=== PATIENT | female | born 1955 | race American Indian/Alaskan Native ===

== ENCOUNTER 2017-06-18 19:30 | Emergency (ER) | payer BC ==
--- NOTE | 2017-06-18 19:40 | EDM.PDOC ---
ED HPI GENERAL MEDICAL PROBLEM - General Chief Complaint: Respiratory Problem Stated Complaint: TROUBLE BREATHING Time Seen by Provider: 06/18/17 19:36 - History of Present Illness INITIAL COMMENTS - FREE TEXT/NARRATIVE: HISTORY AND PHYSICAL: History of present illness: Patient 62-year-old female who was seen approximately 9 days ago at the clinic diagnosed with bronchitis subsequently received a phone call that her chest x- ray demonstrated some atelectasis on the right achieves a follow-up with her doctor she was unable to secure an appointment and presents tonight for evaluation and states that her breathing has been not significantly improved on arrival her pulse oximetry is 9596% on room air and no fever chills vomiting diarrhea or other complaints Review of systems: As per history of present illness and below otherwise all systems reviewed and negative. Past medical history: As per history of present illness and as reviewed below otherwise noncontributory. Surgical history: As per history of present illness and as reviewed below otherwise noncontributory. Social history: No reported history of drug or alcohol abuse. Family history: As per history of present illness and as reviewed below otherwise noncontributory. Physical exam: HEENT: Atraumatic, normocephalic, pupils reactive, negative for conjunctival pallor or scleral icterus, mucous membranes moist, throat clear, neck supple, nontender, trachea midline. Lungs: Clear to auscultation, breath sounds equal bilaterally, chest nontender. Heart: S1S2, regular, negative for clicks, rubs, or JVD. Abdomen: Soft, nondistended, nontender. Negative for masses or hepatosplenomegaly. Negative for costovertebral tenderness. Pelvis: Stable nontender. Genitourinary: Deferred. Rectal: Deferred. Extremities: Atraumatic, negative for cords or calf pain. Neurovascular unremarkable. Neuro: Awake, alert, oriented. Cranial nerves II through XII unremarkable. Cerebellum unremarkable. Motor and sensory unremarkable throughout. Exam nonfocal. Diagnostics: Chest x-ray Therapeutics: None Impression: #1 dyspnea #2 history of bronchitis #3 history of abnormal chest x-ray Definitive disposition and diagnosis as appropriate pending reevaluation and review of above. - Related Data Allergies Allergy/AdvReac Type Severity Reaction Status Date / Time codeine Allergy Stomach Verified 06/18/17 19:38 Upset pregabalin [From Lyrica] Allergy Swelling Verified 06/18/17 19:38 Sulfa (Sulfonamide Allergy Confusion Verified 06/18/17 19:48 Antibiotics) Home Meds: Home Meds Pantoprazole [Protonix] 40 mg PO DAILY 08/23/13 [History] Albuterol [Proair HFA] 1 puff IH Q4H PRN 06/18/17 [History] Amitriptyline [Elavil] 10 mg PO BEDTIME 06/18/17 [History] Social & Family History - Tobacco Use Years of Tobacco use: 1 Second Hand Smoke Exposure: No - Recreational Drug Use Recreational Drug Use: No ED ROS GENERAL - Review of Systems Review Of Systems: ROS reveals no pertinent complaints other than HPI. ED EXAM, GENERAL - Physical Exam Exam: See Below (See dictation) Course - Vital Signs Last Recorded V/S: Last Vital Signs Temp 36.7 C 06/18/17 19:30 Pulse 100 06/18/17 19:30 Resp 24 H 06/18/17 19:30 BP 139/71 06/18/17 19:30 Pulse Ox 95 06/18/17 19:30 - Orders/Labs/Meds Orders: Active Orders 24 hr Category Date Time Status RT Aerosol Therapy [RC] ASDIRECTED Care 06/18/17 19:42 Active Chest 2V [CR] Stat Exams 06/18/17 19:38 Taken Meds: Medications Discontinued Medications Generic Name Dose Route Start Last Admin Trade Name Freq PRN Reason Stop Dose Admin Albuterol/Ipratropium 3 ml 06/18/17 19:41 06/18/17 19:50 Duoneb 3.0-0.5 Mg/3 Ml NEB 06/18/17 19:42 3 ml ONETIME ONE Administration Departure - Departure Time of Disposition: 20:33 Disposition: Home, Self-Care 01 Condition: Good Clinical Impression: Tracheobronchitis - Discharge Information Referrals: Torie Burnett DO [Primary Care Provider] - Forms: ED Department Discharge Additional Instructions: The following information is given to patients seen in the emergency department who are being discharged to home. This information is to outline your options for follow-up care. We provide all patients seen in our emergency department with a follow-up referral. The need for follow-up, as well as the timing and circumstances, are variable depending upon the specifics of your emergency department visit. If you don't have a primary care physician on staff, we will provide you with a referral. We always advise you to contact your personal physician following an emergency department visit to inform them of the circumstance of the visit and for follow-up with them and/or the need for any referrals to a consulting specialist. The emergency department will also refer you to a specialist when appropriate. This referral assures that you have the opportunity for followup care with a specialist. All of these measure are taken in an effort to provide you with optimal care, which includes your followup. Under all circumstances we always encourage you to contact your private physician who remains a resource for coordinating your care. When calling for followup care, please make the office aware that this follow-up is from your recent emergency room visit. If for any reason you are refused follow-up, please contact the [facility] emergency department at and asked to speak to the emergency department charge nurse. Continue albuterol inhaler follow-up private medical doctor 1-2 days return as needed as discussed - My Orders Last 24 Hours: My Active Orders 06/18/17 19:38 Chest 2V [CR] Stat 06/18/17 19:42 RT Aerosol Therapy [RC] ASDIRECTED - Assessment/Plan Last 24 Hours: My Active Orders 06/18/17 19:38 Chest 2V [CR] Stat 06/18/17 19:42 RT Aerosol Therapy [RC] ASDIRECTED
[2017-06-18] MEDS ORDERED: Albuterol/Ipratropium 3.0-0.5 MG/3 ML Neb Soln NEB ONE (19:41)
--- NOTE | 2017-06-19 13:56 | CR ---
EXAM DATE: 06/18/17 PATIENT'S AGE: 62 Patient: BHAVIK PLAZA Facility: [place], [place] Site . Site : 1955 Study: XRay Chest [id number]/25/2018 8:08:08 PM Ordering Physician: Tere Bob Final Report: INDICATION: pain/sob/cough CHEST, PA AND LATERAL Upright PA and lateral radiographs of the chest were performed. Comparison: No previous studies are currently available for comparison. The lungs appear clear and there are no pleural effusions. Heart size and pulmonary vasculature appear normal. Visualized bones show no significant findings. IMPRESSION: No acute intrathoracic abnormality identified. CLAUDIO LUCIO MD [employer] Dictated by: Nate Lucio MD @ 06/18/2017 20:27:36 (Electronic Signature) Report Signed by Proxy. [facility]
== END 2017-06-18 20:45 | disposition home or self-care (01) ==
LOC: MW.ED 19:30
DX: J40 Bronchitis, not specified as acute or chronic (principal); Z79.899 Other long term (current) drug therapy; Z88.2 Allergy status to sulfonamides; Z88.5 Allergy status to narcotic agent; Z88.8 Allergy status to other drugs, medicaments and biological substances; Z72.0 Tobacco use
CPT/HCPCS: 71046; 71046-26; 94640; 99283; 99285-25

== ENCOUNTER 2020-03-24 09:22 | Day surgery (SDC) | payer MEDICARE, OTHER ==
[~2020-03-24 09:22] MED LIST: Lactated Ringers 1,000 ML IV SCH; Sodium Chloride 0.9% 10 ML SDV IV PRN; Sodium Chloride 0.9% 10 ML Syringe FLUSH PRN; Sodium Chloride 0.9% 2.5 ML Syringe FLUSH PRN
--- NOTE | 2020-03-24 09:43 | PCM.PREANE ---
Preanesthetic Assessment - Anesthesia/Transfusion/Family Hx Anesthesia History: Prior Anesthesia Without Reaction Family History of Anesthesia Reaction: No Transfusion History: No Prior Transfusion(s) - Review of Systems General: No Symptoms Pulmonary: No Symptoms Cardiovascular: No Symptoms Gastrointestinal: Diarrhea, Difficulty Swallowing Neurological: No Symptoms Other: Reports: None - Physical Assessment NPO Status Date: 03/23/20 Height: 5 ft 2 in Weight: 93.44 kg ASA Class: 2 Mental Status: Alert & Oriented x3 Airway Class: Mallampati = 2 Dentition: Reports: Normal Dentition ROM/Head Extension: Full Lungs: Clear to Auscultation, Normal Respiratory Effort Cardiovascular: Regular Rate, Regular Rhythm - Allergies Allergies/Adverse Reactions: Allergies Allergy/AdvReac Type Severity Reaction Status Date / Time codeine Allergy Stomach Verified 03/18/20 10:01 Upset pregabalin [From Lyrica] Allergy Swelling Verified 03/18/20 10:01 Sulfa (Sulfonamide Allergy Confusion Verified 03/18/20 10:01 Antibiotics) - Acknowledgements Anesthesia Type Planned: General Anesthesia (tiva) Pt an Appropriate Candidate for the Planned Anesthesia: Yes Alternatives and Risks of Anesthesia Discussed w Pt/Guardian: Yes Pt/Guardian Understands and Agrees with Anesthesia Plan: Yes PreAnesthesia Questionnaire HEENT History: Reports: None Cardiovascular History: Reports: None Respiratory History: Reports: Bronchitis, Recurrent Other Respiratory History: hx tracheobronchitis, smokes 1/2 to 1 PPD x 40 years, Gastrointestinal History: Reports: GERD Genitourinary History: Reports: None RESOURCES REPRESENTATIVE History: Reports: Musculoskeletal History: Reports: None Neurological History: Reports: None Psychiatric History: Reports: None Endocrine/Metabolic History: Reports: Obesity/BMI 30+ Hematologic History: Reports: None Immunologic History: Reports: None Oncologic (Cancer) History: Reports: None Dermatologic History: Reports: None - Past Surgical History Female Surgical History: Reports: TURBT - SUBSTANCE USE Tobacco Use Status *Q: Current Every Day Tobacco User Tobacco Use Within Last Twelve Months: Cigarettes - HOME MEDS Home Medications: Home Meds Amitriptyline [Elavil] 10 mg PO TID 06/18/17 [History] Famotidine [Pepcid] 20 mg PO DAILY 03/18/20 [History] Ibuprofen 2 tab PO ASDIRECTED PRN 03/18/20 [History] - CURRENT (IN HOUSE) MEDS Current Meds: Current Medications Lactated Ringer's (Ringers, Lactated) 1,000 mls @ 125 mls/hr IV ASDIRECTED JOSELINE Last Admin: 03/24/20 09:40 Dose: 125 mls/hr Documented by: Sodium Chloride (Saline Flush) 10 ml FLUSH ASDIRECTED PRN PRN Reason: Keep Vein Open Sodium Chloride (Saline Flush) 2.5 ml FLUSH ASDIRECTED PRN PRN Reason: Keep Vein Open Sodium Chloride (Saline Flush) 10 ml FLUSH ASDIRECTED PRN PRN Reason: Keep Vein Open Sodium Chloride (Saline Flush) 2.5 ml FLUSH ASDIRECTED PRN PRN Reason: Keep Vein Open Sodium Chloride (Normal Saline) 10 ml IV ASDIRECTED PRN PRN Reason: IV Use
[2020-03-24] MEDS ORDERED: Lidocaine 2% 5 ML SDV ONE (09:44)
[2020-03-24] MEDS ORDERED: Propofol 200 MG/20 ML SDV ONE (09:44)
[2020-03-24] MEDS ORDERED: Midazolam 1 MG/ML 2 ML SDV ONE (09:45)
[2020-03-24] MEDS ORDERED: fentaNYL 100 MCG/2 ML SDV ONE (09:45)
[2020-03-24] MEDS ORDERED: Glycopyrrolate 0.2 MG/ML SDV ONE (10:24)
[2020-03-24] MEDS ORDERED: ePHEDrine 50 MG/ML SDV ONE (10:24)
--- NOTE | 2020-03-24 10:29 | PCM48HPAN ---
Post Anesthesia Note - EVALUATION WITHIN 48HRS OF ANESTHETIC Vital Signs in Normal Range: Yes Patient Participated in Evaluation: Yes Respiratory Function Stable: Yes Airway Patent: Yes Cardiovascular Function Stable: Yes Hydration Status Stable: Yes Pain Control Satisfactory: Yes Nausea and Vomiting Control Satisfactory: Yes Mental Status Recovered: Yes Vital Signs: Last Vital Signs Temp Pulse 103 H 03/24/20 09:24 Resp 16 03/24/20 09:24 BP 134/63 03/24/20 09:24 Pulse Ox 97 03/24/20 09:24
--- NOTE | 2020-03-24 10:30 | PCM.POSTAN ---
POST ANESTHESIA ASSESSMENT - MENTAL STATUS Mental Status: Alert, Oriented - VITAL SIGNS Vital Signs: Last Vital Signs Temp Pulse 103 H 03/24/20 09:24 Resp 16 03/24/20 09:24 BP 134/63 03/24/20 09:24 Pulse Ox 97 03/24/20 09:24 - RESPIRATORY Respiratory Status: Respiratory Rate WNL, Airway Patent, O2 Saturation Stable - CARDIOVASCULAR CV Status: Pulse Rate WNL, Blood Pressure Stable - GASTROINTESTINAL GI Status: No Symptoms - POST OP HYDRATION Hydration Status: Adequate & Stable
--- NOTE | 2020-03-24 10:42 | PCM.OPNOTE ---
- General Post-Op/Procedure Note Date of Surgery/Procedure: 03/24/20 Operative Procedure(s): Diagnostic EGD and colonoscopy Findings: Gastritis, normal colonoscopy Pre Op Diagnosis: Reflux and change in bowel habits Post-Op Diagnosis: gastritis, normal colonoscopy Anesthesia Technique: KANDACE Primary Surgeon: Sherlyn Jin Condition: Good
--- NOTE | 2020-03-24 16:42 | OR ---
SURGEON: SURAJ HOWE MD DATE OF PROCEDURE: 03/24/2020 PREOPERATIVE DIAGNOSES: 1. Reflux. 2. Change in bowel habits. POSTOPERATIVE DIAGNOSES: 1. Gastritis. 2. Normal colonoscopy. PROCEDURES PERFORMED: Diagnostic esophagogastroduodenoscopy and colonoscopy. ANESTHESIA: MAC. INSTRUMENT USED: Olympus endoscope and colonoscope. EXTENT OF EXAMINATION: To the second portion of duodenum, to the cecum. PREPARATION: Good. LIMITATIONS: None. INDICATIONS FOR EXAMINATION: The patient is a 64-year-old female with a history of reflux. This has been worsening. She has also noticed a change in her bowel habits. The decision was made to proceed with diagnostic esophagogastroduodenoscopy and colonoscopy. The patient and I discussed the procedures, expected perioperative course, and the risks. She verbalized understanding and wishes to proceed. PROCEDURE IN DETAIL: The patient was brought to the endoscopy suite and placed in a left lateral decubitus position. A time-out was completed verifying the patient's name, age, date of , allergies, and procedure to be performed. Monitored anesthesia care was induced. A bite block was placed in the patient's mouth and continuous oxygen was provided via nasal cannula throughout the procedure. After adequate sedation was achieved, a well-lubricated endoscope was placed in the patient's mouth and advanced under direct visualization to the level of the second portion of duodenum. This appeared normal and a photograph was taken. Scope was then fully withdrawn while examining the color, texture, anatomy, and integrity of the mucosa of the upper GI tract. The duodenum appeared normal. The scope was then brought into the stomach and a photograph was taken of the pylorus and GE junction. These both appeared anatomically normal. The gastric mucosa appeared diffusely inflamed consistent with gastritis. Biopsies were taken of the gastric antrum, body, and fundus and sent for histologic review and H pylori testing. There was no evidence of ulceration. The scope was then brought into the distal esophagus and a photograph was taken of the GE junction. The Z-line appeared normal. A biopsy was taken of the distal esophageal mucosa 1 cm up from the Z-line. This was sent to pathology, labeled as esophagus. The remainder of the esophageal mucosa was free of pathology. The scope was removed and this portion of the procedure terminated. A digital rectal exam was performed. This exam was within normal limits. A well-lubricated colonoscope was inserted in the rectum and advanced under direct visualization to the level of the cecum. Cecum was identified by both visual and anatomic landmarks. A photograph was taken of the cecal cap, however, I was unable to retroflex the scope within the cecum due to looping of the scope more proximally. The scope was then fully withdrawn while examining the color, texture, anatomy, and integrity of the mucosa from the cecum to the anal canal. The findings were consistent with normal colonic mucosa. Scope was then brought into the rectum and retroflexed to allow visualization of the anal canal opening. This appeared normal and a photograph was taken. The scope was then straightened out and fully withdrawn. Cecum to anus time was 9 minutes. The patient tolerated the procedure well and was transferred to the PACU in stable condition. ENDOSCOPIC DIAGNOSES: 1. Gastritis. 2. Normal colonoscopy. RECOMMENDATIONS: We will start the patient on 40 mg of pantoprazole daily. We will see the patient in clinic in 2 weeks to discuss the pathology results and the next steps in treatment. СЕРГЕЙ MCCAULEY /[id number]
== END 2020-03-24 11:16 | disposition home or self-care (01) ==
LOC: MW.SDS 09:22
PROVIDERS: ATTEND Surgery
DX: R19.4 Change in bowel habit (principal); K21.9 Gastro-esophageal reflux disease without esophagitis; F17.200 Nicotine dependence, unspecified, uncomplicated; D17.1 Benign lipomatous neoplasm of skin and subcutaneous tissue of trunk; D17.20 Benign lipomatous neoplasm of skin and subcutaneous tissue of unspecified limb; J44.9 Chronic obstructive pulmonary disease, unspecified; F17.210 Nicotine dependence, cigarettes, uncomplicated; E66.9 Obesity, unspecified; Z88.5 Allergy status to narcotic agent; Z88.8 Allergy status to other drugs, medicaments and biological substances; Z88.2 Allergy status to sulfonamides; Z79.899 Other long term (current) drug therapy; Z98.890 Other specified postprocedural states; Z90.49 Acquired absence of other specified parts of digestive tract; Z68.37 Body mass index [BMI] 37.0-37.9, adult
CPT/HCPCS: 43239; 45378; 88305; 88312; J2001; J2250; J2704; J3010; J3490; J7120; 00813

== ENCOUNTER 2021-04-04 23:17 | Observation (INO) | payer MEDICARE, OTHER ==
[2021-04-04] MEDS ORDERED: Sodium Chloride 0.9% 2.5 ML Syringe FLUSH PRN (23:45)
[2021-04-04] MEDS ORDERED: Lactated Ringers 1,000 ML IV ONE (23:45)
[2021-04-04] MEDS ORDERED: Sodium Chloride 0.9% 10 ML Syringe FLUSH PRN (23:45)
[2021-04-04] MEDS ORDERED: Labetalol 100 MG/20 ML MDV IVPUSH ONE (23:51)
--- NOTE | 2021-04-04 23:51 | EDM.PDOC ---
ED HPI GENERAL MEDICAL PROBLEM - General Chief Complaint: Headache Stated Complaint: HIGH BP, LIGHTHEADED Time Seen by Provider: 04/04/21 23:21 Source of Information: Reports: Patient History Limitations: Reports: No Limitations - History of Present Illness INITIAL COMMENTS - FREE TEXT/NARRATIVE: 65-year-old female history of HTN, HLD, smoker presents with dizziness, headache, chest pain. She saw her PCP Dr. Mary Peters 3 days ago and was prescribed lisinopril 20mg daily. She has felt dizzy over the past week, associated with blurry vision, shortness of breath, dyspnea on exertion, orthopnea, nausea. She woke up with headache today, localized to the frontal, occipital region, described as constant pressure rated 3/10. Over the past 2 weeks she has also had intermittent left leg numbness and weakness, and left- sided intermittent chest pain that is sharp and moderate. She is currently chest pain-free, and denies left leg weakness or numbness. She denies abdominal pain or back pain. She had a negative stress test 12 years ago. ROS: A 10-point review of systems, other than pertinent positives and negatives as stated per HPI, is otherwise negative Past medical history: No additional pertinent history Past Surgical history: No additional pertinent history Social history: No additional pertinent history Family history: No additional pertinent history PHYSICAL EXAM General: AOx4, GCS = 15, No distress HEENT: dry mucous membrane Neck: supple, no meningismus, no Kernig or Brudzinski Cardiac: S1S2 RRR, chest wall tender to palpation. Respiratory: CTAB, no crackles or rales, no wheezing Abdomen: Soft, nontender, no rebound or guarding, nondistended, no pulsatile mass. Back: nontender Musculoskeletal: NVI distally, no deformity Neuro: No focal deficits, CN 2 - 12 WNL. NIHSS = 0. Headache Pain Score (Numeric/FACES): 5 - Related Data Allergies Allergy/AdvReac Type Severity Reaction Status Date / Time codeine Allergy Stomach Verified 04/04/21 23:29 Upset pregabalin [From Lyrica] Allergy Swelling Verified 04/04/21 23:29 Sulfa (Sulfonamide Allergy Confusion Verified 04/04/21 23:29 Antibiotics) Home Meds: Home Meds Amitriptyline [Elavil] 04/04/21 [History] lisinopriL [Lisinopril] 04/04/21 [History] Past Medical History HEENT History: Reports: None Cardiovascular History: Reports: None Respiratory History: Reports: Bronchitis, Recurrent Other Respiratory History: hx tracheobronchitis, smokes 1/2 to 1 PPD x 40 years, Gastrointestinal History: Reports: GERD Genitourinary History: Reports: None 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: Musculoskeletal History: Reports: None Neurological History: Reports: None Psychiatric History: Reports: None Endocrine/Metabolic History: Reports: Obesity/BMI 30+ Hematologic History: Reports: None Immunologic History: Reports: None Oncologic (Cancer) History: Reports: None Dermatologic History: Reports: None - Past Surgical History Head Surgeries/Procedures: Reports: None HEENT Surgical History: Reports: Tonsillectomy Cardiovascular Surgical History: Reports: None Respiratory Surgical History: Reports: None GI Surgical History: Reports: Cholecystectomy Female Surgical History: Reports: TURBT Endocrine Surgical History: Reports: None Neurological Surgical History: Reports: None Musculoskeletal Surgical History: Reports: Other (See Below) Other Musculoskeletal Surgeries/Procedures:: excision of lipoma from rt rib cage area Oncologic Surgical History: Reports: None Social & Family History - Family History Family Medical History: No Pertinent Family History - Tobacco Use Second Hand Smoke Exposure: No - Caffeine Use Caffeine Use: Reports: None - Recreational Drug Use Recreational Drug Use: No ED ROS GENERAL - Review of Systems Review Of Systems: See Below (see dictation) ED EXAM, GENERAL - Physical Exam Exam: See Below (see dictation) #1 Interpretation EKG Interpretation Comments: Heart rate = 91 bpm, normal sinus rhythm, normal QRS interval, no STEMI. EKG and rhythm strip interpreted by me at 1151p Course - Vital Signs Last Recorded V/S: Last Vital Signs Temp 98.1 F 04/04/21 23:26 Pulse 75 04/05/21 01:53 Resp 16 04/05/21 01:53 BP 167/72 H 04/05/21 01:53 Pulse Ox 97 04/05/21 01:53 - Orders/Labs/Meds Orders: Active Orders 24 hr Category Date Time Status Cardiac Monitoring [RC] . DIRECTED Care 04/04/21 23:45 Active Pulse Oximetry [RC] ASDIRECTED Care 04/04/21 23:45 Active B-TYPE NATRIURETIC PEPTIDE,BNP [CHEM] Stat Lab 04/04/21 23:55 Received Sodium Chloride 0.9% [Saline Flush] Med 04/04/21 23:45 Active 10 ml FLUSH ASDIRECTED PRN Sodium Chloride 0.9% [Saline Flush] Med 04/04/21 23:45 Active 2.5 ml FLUSH ASDIRECTED PRN Saline Lock Insert [OM.PC] Routine Oth 04/04/21 23:45 Ordered Medication Orders Sodium Chloride (Sodium Chloride 0.9% 10 Ml Syringe) 10 ml FLUSH ASDIRECTED PRN PRN Reason: Keep Vein Open Last Admin: 04/04/21 23:52 Dose: 10 ml Documented by: CECILE Sodium Chloride (Sodium Chloride 0.9% 2.5 Ml Syringe) 2.5 ml FLUSH ASDIRECTED PRN PRN Reason: Keep Vein Open Last Admin: 04/04/21 23:52 Dose: 2.5 ml Documented by: CECILE Labs: Laboratory Tests 04/04/21 04/04/21 04/04/21 Range/Units 23:51 23:55 23:55 WBC 9.06 (4.0-11.0) K/uL RBC 4.74 (4.30-5.90) M/uL Hgb 14.2 (12.0-16.0) g/dL Hct 42.7 (36.0-46.0) % MCV 90.1 (80.0-98.0) fL MCH 30.0 (27.0-32.0) pg MCHC 33.3 (31.0-37.0) g/dL RDW Std Deviation 51.1 (28.0-62.0) fl RDW Coeff of Yaritza 16 H (11.0-15.0) % Plt Count 275 (150-400) K/uL MPV 10.00 (7.40-12.00) fL Neut % (Auto) 55.2 (48.0-80.0) % Lymph % (Auto) 35.2 (16.0-40.0) % [place] % (Auto) 5.8 (0.0-15.0) % Eos % (Auto) 3.2 (0.0-7.0) % Baso % (Auto) 0.6 (0.0-1.5) % Neut # (Auto) 5.0 (1.4-5.7) K/uL Lymph # (Auto) 3.2 H (0.6-2.4) K/uL [place] # (Auto) 0.5 (0.0-0.8) K/uL Eos # (Auto) 0.3 (0.0-0.7) K/uL Baso # (Auto) 0.1 (0.0-0.1) K/uL Nucleated RBC % 0.0 /100WBC Nucleated RBCs # 0 K/uL Sodium (136-145) mmol/L Potassium (3.5-5.1) mmol/L Chloride (98-107) mmol/L Carbon Dioxide (21.0-32.0) mmol/L BUN (7.0-18.0) mg/dL Creatinine (0.6-1.0) mg/dL Est Cr Clr Drug Dosing mL/min Estimated GFR (MDRD) ml/min Glucose (74-106) mg/dL POC Glucose 99 (70-99) mg/dL Calcium (8.5-10.1) mg/dL Phosphorus (2.6-4.7) mg/dL Magnesium (1.8-2.4) mg/dL Total Bilirubin (0.2-1.0) mg/dL AST (15-37) IU/L ALT (14-63) IU/L Alkaline Phosphatase (46-116) U/L Troponin I (0.000-0.056) ng/mL Total Protein (6.4-8.2) g/dL Albumin (3.4-5.0) g/dL Globulin (2.6-4.0) g/dL Albumin/Globulin Ratio (0.9-1.6) Lipase (73-393) U/L Urine Color Urine Appearance Urine pH (5.0-8.0) Ur Specific [place] (1.001-1.035) Urine Protein (NEGATIVE) mg/dL Urine Glucose (UA) (NEGATIVE) mg/dL Urine Ketones (NEGATIVE) mg/dL Urine Occult Blood (NEGATIVE) Urine Nitrite (NEGATIVE) Urine Bilirubin (NEGATIVE) Urine Urobilinogen (<2.0) EU/dL Ur Leukocyte Esterase (NEGATIVE) Urine RBC (0-2/HPF) Urine WBC (0-5/HPF) Ur Epithelial Cells (NONE-FEW) Urine Bacteria (NEGATIVE) SARS-CoV-2 RNA (LATISHA) NEGATIVE (NEGATIVE) 04/04/21 04/05/21 Range/Units 23:55 01:30 WBC (4.0-11.0) K/uL RBC (4.30-5.90) M/uL Hgb (12.0-16.0) g/dL Hct (36.0-46.0) % MCV (80.0-98.0) fL MCH (27.0-32.0) pg MCHC (31.0-37.0) g/dL RDW Std Deviation (28.0-62.0) fl RDW Coeff of [place] (11.0-15.0) % Plt Count (150-400) K/uL MPV (7.40-12.00) fL Neut % (Auto) (48.0-80.0) % Lymph % (Auto) (16.0-40.0) % [place] % (Auto) (0.0-15.0) % Eos % (Auto) (0.0-7.0) % Baso % (Auto) (0.0-1.5) % Neut # (Auto) (1.4-5.7) K/uL Lymph # (Auto) (0.6-2.4) K/uL [place] # (Auto) (0.0-0.8) K/uL Eos # (Auto) (0.0-0.7) K/uL Baso # (Auto) (0.0-0.1) K/uL Nucleated RBC % /100WBC Nucleated RBCs # K/uL Sodium 140 (136-145) mmol/L Potassium 3.8 (3.5-5.1) mmol/L Chloride 104 (98-107) mmol/L Carbon Dioxide 26.4 (21.0-32.0) mmol/L BUN 11 (7.0-18.0) mg/dL Creatinine 0.8 (0.6-1.0) mg/dL Est Cr Clr Drug Dosing 54.71 mL/min Estimated GFR (MDRD) > 60.0 ml/min Glucose 105 (74-106) mg/dL POC Glucose (70-99) mg/dL Calcium 8.8 (8.5-10.1) mg/dL Phosphorus 3.3 (2.6-4.7) mg/dL Magnesium 2.4 (1.8-2.4) mg/dL Total Bilirubin 0.2 (0.2-1.0) mg/dL AST 17 (15-37) IU/L ALT 27 (14-63) IU/L Alkaline Phosphatase 104 (46-116) U/L Troponin I < 0.050 (0.000-0.056) ng/mL Total Protein 8.1 (6.4-8.2) g/dL Albumin 3.6 (3.4-5.0) g/dL Globulin 4.5 H (2.6-4.0) g/dL Albumin/Globulin Ratio 0.8 L (0.9-1.6) Lipase 63 L (73-393) U/L Urine Color YELLOW Urine Appearance SLT CLOUDY Urine pH 5.5 (5.0-8.0) Ur Specific [place] 1.010 (1.001-1.035) Urine Protein NEGATIVE (NEGATIVE) mg/dL Urine Glucose (UA) NEGATIVE (NEGATIVE) mg/dL Urine Ketones NEGATIVE (NEGATIVE) mg/dL Urine Occult Blood SMALL H (NEGATIVE) Urine Nitrite NEGATIVE (NEGATIVE) Urine Bilirubin NEGATIVE (NEGATIVE) Urine Urobilinogen 0.2 (<2.0) EU/dL Ur Leukocyte Esterase NEGATIVE (NEGATIVE) Urine RBC 0-2 (0-2/HPF) Urine WBC 1-4 (0-5/HPF) Ur Epithelial Cells FEW (NONE-FEW) Urine Bacteria 1+ H (NEGATIVE) SARS-CoV-2 RNA (LATISHA) (NEGATIVE) Meds: Medications Generic Name Dose Route Start Last Admin Trade Name Freq PRN Reason Stop Dose Admin Sodium Chloride 10 ml 04/04/21 23:45 04/04/21 23:52 Sodium Chloride 0.9% 10 Ml Syringe FLUSH 10 ml ASDIRECTED PRN Administration Keep Vein Open Sodium Chloride 2.5 ml 04/04/21 23:45 04/04/21 23:52 Sodium Chloride 0.9% 2.5 Ml Syringe FLUSH 2.5 ml ASDIRECTED PRN Administration Keep Vein Open Discontinued Medications Generic Name Dose Route Start Last Admin Trade Name Freq PRN Reason Stop Dose Admin Lactated Ringer's 1,000 mls @ 999 mls/hr 04/04/21 23:45 04/04/21 23:52 Ringers, Lactated IV 04/05/21 00:45 999 mls/hr .BOLUS ONE Administration Labetalol HCl 10 mg 04/04/21 23:51 04/04/21 23:59 Labetalol 100 Mg/20 Ml Mdv IVPUSH 04/04/21 23:52 10 mg ONETIME ONE Administration Protocol - Re-Assessments/Exams Free Text/Narrative Re-Assessment/Exam: 04/05/21 02:[address] Orellana, who agrees to admit patient. The hospitalist's documentation supersedes all other documentation on this patient with regard to any conflicts or discrepancies from this point forward. Any emergency conditions have been treated to the ability of the ED prior to admission. Departure - Departure Time of Disposition: 02:14 Disposition: Refer to Observation Condition: Good Clinical Impression: Tension-type headache, Chest pain - Discharge Information *PRESCRIPTION DRUG MONITORING PROGRAM REVIEWED*: Not Applicable *COPY OF PRESCRIPTION DRUG MONITORING REPORT IN PATIENT BRIGIDO: Not Applicable Instructions: Nonspecific Chest Pain, Adult Forms: ED Department Discharge Sepsis Event Note (ED) - Evaluation Sepsis Screening Result: No Definite Risk - Focused Exam Vital Signs: Vital Signs Temp Pulse Resp BP Pulse Ox 04/05/21 01:53 75 16 167/72 H 97 04/04/21 23:26 98.1 F 95 20 191/79 H 98 - My Orders Last 24 Hours: My Active Orders 04/04/21 23:45 Cardiac Monitoring [RC] . DIRECTED Pulse Oximetry [RC] ASDIRECTED Sodium Chloride 0.9% [Saline Flush] 10 ml FLUSH ASDIRECTED PRN Sodium Chloride 0.9% [Saline Flush] 2.5 ml FLUSH ASDIRECTED PRN Saline Lock Insert [OM.PC] Routine 04/04/21 23:55 B-TYPE NATRIURETIC PEPTIDE,BNP [CHEM] Stat - Assessment/Plan Last 24 Hours: My Active Orders 04/04/21 23:45 Cardiac Monitoring [RC] . DIRECTED Pulse Oximetry [RC] ASDIRECTED Sodium Chloride 0.9% [Saline Flush] 10 ml FLUSH ASDIRECTED PRN Sodium Chloride 0.9% [Saline Flush] 2.5 ml FLUSH ASDIRECTED PRN Saline Lock Insert [OM.PC] Routine 04/04/21 23:55 B-TYPE NATRIURETIC PEPTIDE,BNP [CHEM] Stat
[2021-04-05 00:25] LABS: BLOOD UREA NITROGEN,BUN 11 mg/dL (7.0-18.0); CARBON DIOXIDE,CO2 26.4 mmol/L (21.0-32.0); CHLORIDE,CL 104 mmol/L (98-107); GLUCOSE RANDOM 105 mg/dL (74-106); LIPASE 63 U/L (73-393); POTASSIUM,K 3.8 mmol/L (3.5-5.1); SODIUM,NA 140 mmol/L (136-145)
--- NOTE | 2021-04-05 00:57 | CT ---
Indication: Headache, high blood pressure Technique: Nonenhanced axial CT imaging through the head. Sagittal and coronal reconstructions are provided. Comparison: On Findings: There is no evidence of intracranial hemorrhage or cerebral edema. Grady-white matter differentiation is preserved. There is mild generalized cerebral volume loss with compensatory prominence of the lateral ventricles. The basal cisterns are patent. The calvarium is intact. The visualized paranasal sinuses and mastoid air cells are aerated. Impression: No acute intracranial process. Please note that all CT scans at this facility use dose modulation, iterative reconstruction, and/or weight-based dosing when appropriate to reduce radiation dose to as low as reasonably achievable. Dictated by Cleve Vogel MD @ 04/05/2021 12:56:35 AM (Electronically Signed)
--- NOTE | 2021-04-05 00:59 | CR ---
INDICATION: , Blood pressure TECHNIQUE: PA and lateral views of the chest COMPARISON: One-view chest radiograph 03/17/2020 FINDINGS: The lungs are clear. There is no pleural effusion or pneumothorax. The cardiomediastinal silhouette is normal. The osseous structures are unremarkable. IMPRESSION: No acute intrathoracic process. Dictated by Cleve Vogel MD @ 04/05/2021 12:57:46 AM (Electronically Signed)
[2021-04-05] MEDS ORDERED: diphenhydrAMINE 50 MG/ML SDV IVPUSH ONE (02:28)
[2021-04-05] MEDS ORDERED: Metoclopramide 10 MG/2 ML SDV IVPUSH ONE (02:28)
[2021-04-05] MEDS ORDERED: Lisinopril 10 MG Tab PO ONE (03:43)
--- NOTE | 2021-04-05 07:30 | PCM.HP.2 ---
H&P History of Present Illness - General Date of Service: 04/05/21 Admit Problem/Dx: Admission Diagnosis/Problem Admission Diagnosis/Problem Chest pain Headache Pain Score (Numeric/FACES): 1 - Related Data Allergies/Adverse Reactions: Allergies Allergy/AdvReac Type Severity Reaction Status Date / Time codeine Allergy Stomach Verified 04/05/21 03:02 Upset pregabalin [From Lyrica] Allergy Swelling Verified 04/05/21 03:02 Sulfa (Sulfonamide Allergy Confusion Verified 04/05/21 03:02 Antibiotics) Home Medications: Home Meds Amitriptyline [Elavil] 10 mg PO TID 04/04/21 [History] lisinopriL [Lisinopril] 20 mg PO DAILY 04/04/21 [History] Past Medical History HEENT History: Reports: None Cardiovascular History: Reports: None Respiratory History: Reports: Bronchitis, Recurrent Other Respiratory History: hx tracheobronchitis, smokes 1/2 to 1 PPD x 40 years, Gastrointestinal History: Reports: GERD Genitourinary History: Reports: None 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: Musculoskeletal History: Reports: None Neurological History: Reports: None Psychiatric History: Reports: None Endocrine/Metabolic History: Reports: Obesity/BMI 30+ Hematologic History: Reports: None Immunologic History: Reports: None Oncologic (Cancer) History: Reports: None Dermatologic History: Reports: None - Past Surgical History Head Surgeries/Procedures: Reports: None HEENT Surgical History: Reports: Tonsillectomy Cardiovascular Surgical History: Reports: None Respiratory Surgical History: Reports: None GI Surgical History: Reports: Cholecystectomy Female Surgical History: Reports: TURBT Endocrine Surgical History: Reports: None Neurological Surgical History: Reports: None Musculoskeletal Surgical History: Reports: Other (See Below) Other Musculoskeletal Surgeries/Procedures:: excision of lipoma from rt rib cage area Oncologic Surgical History: Reports: None Social & Family History - Family History Family Medical History: No Pertinent Family History - Tobacco Use Tobacco Use Status *Q: Current Every Day Tobacco User Years of Tobacco use: 50 Packs/Tins Daily: 1 Second Hand Smoke Exposure: No - Caffeine Use Caffeine Use: Reports: Coffee - Recreational Drug Use Recreational Drug Use: No Exam - Vital Signs Vital Signs: Last Vital Signs Temp 97.3 F 04/05/21 03:30 Pulse 89 04/05/21 03:30 Resp 20 04/05/21 03:30 BP 129/52 L 04/05/21 07:14 Pulse Ox 96 04/05/21 03:30 Weight: 201 lb 1.6 oz - Patient Data Lab Results Last 24 hrs: Laboratory Results - last 24 hr 04/04/21 04/04/21 04/04/21 Range/Units 23:51 23:55 23:55 WBC 9.06 (4.0-11.0) K/uL RBC 4.74 (4.30-5.90) M/uL Hgb 14.2 (12.0-16.0) g/dL Hct 42.7 (36.0-46.0) % MCV 90.1 (80.0-98.0) fL MCH 30.0 (27.0-32.0) pg MCHC 33.3 (31.0-37.0) g/dL RDW Std Deviation 51.1 (28.0-62.0) fl RDW Coeff of [place] 16 H (11.0-15.0) % Plt Count 275 (150-400) K/uL MPV 10.00 (7.40-12.00) fL Neut % (Auto) 55.2 (48.0-80.0) % Lymph % (Auto) 35.2 (16.0-40.0) % [place] % (Auto) 5.8 (0.0-15.0) % Eos % (Auto) 3.2 (0.0-7.0) % Baso % (Auto) 0.6 (0.0-1.5) % Neut # (Auto) 5.0 (1.4-5.7) K/uL Lymph # (Auto) 3.2 H (0.6-2.4) K/uL [place] # (Auto) 0.5 (0.0-0.8) K/uL Eos # (Auto) 0.3 (0.0-0.7) K/uL Baso # (Auto) 0.1 (0.0-0.1) K/uL Nucleated RBC % 0.0 /100WBC Nucleated RBCs # 0 K/uL Sodium (136-145) mmol/L Potassium (3.5-5.1) mmol/L Chloride (98-107) mmol/L Carbon Dioxide (21.0-32.0) mmol/L BUN (7.0-18.0) mg/dL Creatinine (0.6-1.0) mg/dL Est Cr Clr Drug Dosing mL/min Estimated GFR (MDRD) ml/min Glucose (74-106) mg/dL POC Glucose 99 (70-99) mg/dL Calcium (8.5-10.1) mg/dL Phosphorus (2.6-4.7) mg/dL Magnesium (1.8-2.4) mg/dL Total Bilirubin (0.2-1.0) mg/dL AST (15-37) IU/L ALT (14-63) IU/L Alkaline Phosphatase (46-116) U/L Troponin I (0.000-0.056) ng/mL Total Protein (6.4-8.2) g/dL Albumin (3.4-5.0) g/dL Globulin (2.6-4.0) g/dL Albumin/Globulin Ratio (0.9-1.6) Lipase (73-393) U/L Urine Color Urine Appearance Urine pH (5.0-8.0) Ur Specific [place] (1.001-1.035) Urine Protein (NEGATIVE) mg/dL Urine Glucose (UA) (NEGATIVE) mg/dL Urine Ketones (NEGATIVE) mg/dL Urine Occult Blood (NEGATIVE) Urine Nitrite (NEGATIVE) Urine Bilirubin (NEGATIVE) Urine Urobilinogen (<2.0) EU/dL Ur Leukocyte Esterase (NEGATIVE) Urine RBC (0-2/HPF) Urine WBC (0-5/HPF) Ur Epithelial Cells (NONE-FEW) Urine Bacteria (NEGATIVE) SARS-CoV-2 RNA (LATISHA) NEGATIVE (NEGATIVE) 04/04/21 04/05/21 04/05/21 Range/Units 23:55 01:30 04:00 WBC (4.0-11.0) K/uL RBC (4.30-5.90) M/uL Hgb (12.0-16.0) g/dL Hct (36.0-46.0) % MCV (80.0-98.0) fL MCH (27.0-32.0) pg MCHC (31.0-37.0) g/dL RDW Std Deviation (28.0-62.0) fl RDW Coeff of [place] (11.0-15.0) % Plt Count (150-400) K/uL MPV (7.40-12.00) fL Neut % (Auto) (48.0-80.0) % Lymph % (Auto) (16.0-40.0) % [place] % (Auto) (0.0-15.0) % Eos % (Auto) (0.0-7.0) % Baso % (Auto) (0.0-1.5) % Neut # (Auto) (1.4-5.7) K/uL Lymph # (Auto) (0.6-2.4) K/uL [place] # (Auto) (0.0-0.8) K/uL Eos # (Auto) (0.0-0.7) K/uL Baso # (Auto) (0.0-0.1) K/uL Nucleated RBC % /100WBC Nucleated RBCs # K/uL Sodium 140 (136-145) mmol/L Potassium 3.8 (3.5-5.1) mmol/L Chloride 104 (98-107) mmol/L Carbon Dioxide 26.4 (21.0-32.0) mmol/L BUN 11 (7.0-18.0) mg/dL Creatinine 0.8 (0.6-1.0) mg/dL Est Cr Clr Drug Dosing 54.71 mL/min Estimated GFR (MDRD) > 60.0 ml/min Glucose 105 (74-106) mg/dL POC Glucose (70-99) mg/dL Calcium 8.8 (8.5-10.1) mg/dL Phosphorus 3.3 (2.6-4.7) mg/dL Magnesium 2.4 (1.8-2.4) mg/dL Total Bilirubin 0.2 (0.2-1.0) mg/dL AST 17 (15-37) IU/L ALT 27 (14-63) IU/L Alkaline Phosphatase 104 (46-116) U/L Troponin I < 0.050 < 0.050 (0.000-0.056) ng/mL Total Protein 8.1 (6.4-8.2) g/dL Albumin 3.6 (3.4-5.0) g/dL Globulin 4.5 H (2.6-4.0) g/dL Albumin/Globulin Ratio 0.8 L (0.9-1.6) Lipase 63 L (73-393) U/L Urine Color YELLOW Urine Appearance SLT CLOUDY Urine pH 5.5 (5.0-8.0) Ur Specific [place] 1.010 (1.001-1.035) Urine Protein NEGATIVE (NEGATIVE) mg/dL Urine Glucose (UA) NEGATIVE (NEGATIVE) mg/dL Urine Ketones NEGATIVE (NEGATIVE) mg/dL Urine Occult Blood SMALL H (NEGATIVE) Urine Nitrite NEGATIVE (NEGATIVE) Urine Bilirubin NEGATIVE (NEGATIVE) Urine Urobilinogen 0.2 (<2.0) EU/dL Ur Leukocyte Esterase NEGATIVE (NEGATIVE) Urine RBC 0-2 (0-2/HPF) Urine WBC 1-4 (0-5/HPF) Ur Epithelial Cells FEW (NONE-FEW) Urine Bacteria 1+ H (NEGATIVE) SARS-CoV-2 RNA (LATISHA) (NEGATIVE) Result Diagrams: 04/04/21 23:55 04/04/21 23:55 Sepsis Event Note - Evaluation Sepsis Screening Result: No Definite Risk - Focused Exam Vital Signs: Vital Signs Temp Pulse Resp BP BP BP Pulse Ox 04/05/21 07:14 129/52 L 04/05/21 03:50 178/92 H 04/05/21 03:30 97.3 F 89 20 178/92 H 96 04/05/21 01:53 75 16 167/72 H 97 04/04/21 23:26 98.1 F 95 20 191/79 H 98 Orders Last 24hrs: Active Orders 24 hr Category Date Time Status Patient Status [ADT] Routine ADT 04/05/21 02:13 Active Cardiac Monitoring [RC] . DIRECTED Care 04/04/21 23:45 Active Pulse Oximetry [RC] ASDIRECTED Care 04/04/21 23:45 Active Telemetry Monitoring [Cardiac Monitoring] [RC] . Care 04/05/21 02:27 Active DIRECTED Regular Diet [DIET] Diet 04/05/21 Breakfast Active B-TYPE NATRIURETIC PEPTIDE,BNP [CHEM] Stat Lab 04/04/21 23:55 Received TROPONIN I [CHEM] Q6H Lab 04/05/21 09:44 Ordered Sodium Chloride 0.9% [Saline Flush] Med 04/04/21 23:45 Active 10 ml FLUSH ASDIRECTED PRN Sodium Chloride 0.9% [Saline Flush] Med 04/04/21 23:45 Active 2.5 ml FLUSH ASDIRECTED PRN Saline Lock Insert [OM.PC] Routine Oth 04/04/21 23:45 Ordered Medication Orders Sodium Chloride (Sodium Chloride 0.9% 10 Ml Syringe) 10 ml FLUSH ASDIRECTED PRN PRN Reason: Keep Vein Open Last Admin: 04/04/21 23:52 Dose: 10 ml Documented by: CECILE Sodium Chloride (Sodium Chloride 0.9% 2.5 Ml Syringe) 2.5 ml FLUSH ASDIRECTED PRN PRN Reason: Keep Vein Open Last Admin: 04/04/21 23:52 Dose: 2.5 ml Documented by: CECILE
[2021-04-05] MEDS ORDERED: Lisinopril 10 MG Tab PO SCH (11:00)
[2021-04-05] MEDS ORDERED: Gadobenate Dimeglumine 529 MG/ML 20 ML SDV IVPUSH STA (13:15)
[2021-04-05] MEDS ORDERED: amLODIPine 5 MG Tab PO ONE (14:04)
--- NOTE | 2021-04-05 14:21 | MR ---
INDICATION: High blood pressure. Left leg numbness. TECHNIQUE: Sagittal T1 axial FLAIR T2, diffusion weighted, susceptibility weighted and gadolinium-enhanced axial and coronal T1 weighted images. COMPARISON: CT brain performed earlier today. FINDINGS: There are no areas of diffusion restriction to suggest acute ischemic infarction. Small foci of signal abnormality are noted within the deep cerebral white matter, the parasagittal anterior right parietal lobe and posterior left thalamus consistent with old vascular insults. The subtle right parasagittal parietal focus (image 20 of series #301) consistent with a small chronic cortical infarct. The left dorsal thalamic lesion (image 73 of series #501) further characterized by susceptibility effect suggesting a site of old hemorrhage. Ventricles are mildly prominent for age and consistent with mild volume loss. No enhancing intra-axial or extra-axial lesion. IMPRESSION: 1. No evidence of acute ischemic infarction or acute hemorrhage. 2. Small foci of old/chronic vascular insults. 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 Dictated by Raz Cruz MD @ 04/05/2021 2:20:02 PM (Electronically Signed)
--- NOTE | 2021-04-05 14:43 | PCM.HP.2 ---
H&P History of Present Illness - General Date of Service: 04/05/21 Admit Problem/Dx: Admission Diagnosis/Problem Admission Diagnosis/Problem Chest pain - History of Present Illness Initial Comments - Free Text/Narative: 65 yo female who presents to the ED with complaint of blood pressure being to high. For the past several days she has had headache, with intermittent chest pains. The shes pain is pleuritic and left sided. She also reports numbness and tingling down her left leg. Her blood pressure had been 200s/80s She Has seen Dr. Bradford who prescribe her lisinopril several days ago but has not notice any improvement in her blood pressure. Headache Pain Score (Numeric/FACES): 1 - Related Data Allergies/Adverse Reactions: Allergies Allergy/AdvReac Type Severity Reaction Status Date / Time codeine Allergy Stomach Verified 04/05/21 03:02 Upset pregabalin [From Lyrica] Allergy Swelling Verified 04/05/21 03:02 Sulfa (Sulfonamide Allergy Confusion Verified 04/05/21 03:02 Antibiotics) Home Medications: Home Meds Amitriptyline [Elavil] 10 mg PO TID 04/04/21 [History] lisinopriL [Lisinopril] 20 mg PO DAILY 04/04/21 [History] amLODIPine Besylate [Amlodipine Besylate] 10 mg PO DAILY #30 tablet 04/05/21 [Rx] Past Medical History HEENT History: Reports: None Cardiovascular History: Reports: None Respiratory History: Reports: Bronchitis, Recurrent Other Respiratory History: hx tracheobronchitis, smokes 1/2 to 1 PPD x 40 years, Gastrointestinal History: Reports: GERD Genitourinary History: Reports: None [employer] History: Reports: Musculoskeletal History: Reports: None Neurological History: Reports: None Psychiatric History: Reports: None Endocrine/Metabolic History: Reports: Obesity/BMI 30+ Hematologic History: Reports: None Immunologic History: Reports: None Oncologic (Cancer) History: Reports: None Dermatologic History: Reports: None - Past Surgical History Head Surgeries/Procedures: Reports: None HEENT Surgical History: Reports: Tonsillectomy Cardiovascular Surgical History: Reports: None Respiratory Surgical History: Reports: None GI Surgical History: Reports: Cholecystectomy Female Surgical History: Reports: TURBT Endocrine Surgical History: Reports: None Neurological Surgical History: Reports: None Musculoskeletal Surgical History: Reports: Other (See Below) Other Musculoskeletal Surgeries/Procedures:: excision of lipoma from rt rib cage area Oncologic Surgical History: Reports: None Social & Family History - Family History Family Medical History: No Pertinent Family History - Tobacco Use Tobacco Use Status *Q: Current Every Day Tobacco User Years of Tobacco use: 50 Packs/Tins Daily: 1 Second Hand Smoke Exposure: No - Caffeine Use Caffeine Use: Reports: Coffee - Recreational Drug Use Recreational Drug Use: No H&P Review of Systems - Review of Systems: Review Of Systems: Comprehensive ROS is negative, except as noted in HPI. Exam - Exam Exam: See Below - Vital Signs Vital Signs: Last Vital Signs Temp 36.2 C 04/05/21 11:55 Pulse 76 04/05/21 14:29 Resp 18 04/05/21 11:55 BP 151/76 H 04/05/21 14:29 Pulse Ox 96 04/05/21 11:55 Weight: 91.217 kg - Exam General: Alert, Oriented HEENT: Mucosa Moist & [place] Lungs: Clear to Auscultation, Normal Respiratory Effort Cardiovascular: Regular Rate, Regular Rhythm GI/Abdominal Exam: Normal Bowel Sounds, Soft, Non-Tender Extremities: Non-Tender, No Pedal Edema Skin: Warm, Dry, Intact Neurological: Cranial Nerves Intact, Reflexes Equal Bilateral, Strength Equal Bilateral, Normal Gait, Normal Speech, Normal Tone, Sensation Intact. No: Focal Deficit - Patient Data Lab Results Last 24 hrs: Laboratory Results - last 24 hr 04/04/21 04/04/21 04/04/21 Range/Units 23:51 23:55 23:55 WBC 9.06 (4.0-11.0) K/uL RBC 4.74 (4.30-5.90) M/uL Hgb 14.2 (12.0-16.0) g/dL Hct 42.7 (36.0-46.0) % MCV 90.1 (80.0-98.0) fL MCH 30.0 (27.0-32.0) pg MCHC 33.3 (31.0-37.0) g/dL RDW Std Deviation 51.1 (28.0-62.0) fl RDW Coeff of Yar[place]za 16 H (11.0-15.0) % Plt Count 275 (150-400) K/uL MPV 10.00 (7.40-12.00) fL Neut % (Auto) 55.2 (48.0-80.0) % Lymph % (Auto) 35.2 (16.0-40.0) % [place] % (Auto) 5.8 (0.0-15.0) % Eos % (Auto) 3.2 (0.0-7.0) % Baso % (Auto) 0.6 (0.0-1.5) % Neut # (Auto) 5.0 (1.4-5.7) K/uL Lymph # (Auto) 3.2 H (0.6-2.4) K/uL [place] # (Auto) 0.5 (0.0-0.8) K/uL Eos # (Auto) 0.3 (0.0-0.7) K/uL Baso # (Auto) 0.1 (0.0-0.1) K/uL Nucleated RBC % 0.0 /100WBC Nucleated RBCs # 0 K/uL Sodium (136-145) mmol/L Potassium (3.5-5.1) mmol/L Chloride (98-107) mmol/L Carbon Dioxide (21.0-32.0) mmol/L BUN (7.0-18.0) mg/dL Creatinine (0.6-1.0) mg/dL Est Cr Clr Drug Dosing mL/min Estimated GFR (MDRD) ml/min Glucose (74-106) mg/dL POC Glucose 99 (70-99) mg/dL Calcium (8.5-10.1) mg/dL Phosphorus (2.6-4.7) mg/dL Magnesium (1.8-2.4) mg/dL Total Bilirubin (0.2-1.0) mg/dL AST (15-37) IU/L ALT (14-63) IU/L Alkaline Phosphatase (46-116) U/L Troponin I (0.000-0.056) ng/mL Total Protein (6.4-8.2) g/dL Albumin (3.4-5.0) g/dL Globulin (2.6-4.0) g/dL Albumin/Globulin Ratio (0.9-1.6) Lipase (73-393) U/L Urine Color Urine Appearance Urine pH (5.0-8.0) Ur Specific [place] (1.001-1.035) Urine Protein (NEGATIVE) mg/dL Urine Glucose (UA) (NEGATIVE) mg/dL Urine Ketones (NEGATIVE) mg/dL Urine Occult Blood (NEGATIVE) Urine Nitrite (NEGATIVE) Urine Bilirubin (NEGATIVE) Urine Urobilinogen (<2.0) EU/dL Ur Leukocyte Esterase (NEGATIVE) Urine RBC (0-2/HPF) Urine WBC (0-5/HPF) Ur Epithelial Cells (NONE-FEW) Urine Bacteria (NEGATIVE) SARS-CoV-2 RNA (LATISHA) NEGATIVE (NEGATIVE) 04/04/21 04/05/21 04/05/21 Range/Units 23:55 01:30 04:00 WBC (4.0-11.0) K/uL RBC (4.30-5.90) M/uL Hgb (12.0-16.0) g/dL Hct (36.0-46.0) % MCV (80.0-98.0) fL MCH (27.0-32.0) pg MCHC (31.0-37.0) g/dL RDW Std Deviation (28.0-62.0) fl RDW Coeff of [place] (11.0-15.0) % Plt Count (150-400) K/uL MPV (7.40-12.00) fL Neut % (Auto) (48.0-80.0) % Lymph % (Auto) (16.0-40.0) % [place] % (Auto) (0.0-15.0) % Eos % (Auto) (0.0-7.0) % Baso % (Auto) (0.0-1.5) % Neut # (Auto) (1.4-5.7) K/uL Lymph # (Auto) (0.6-2.4) K/uL [place] # (Auto) (0.0-0.8) K/uL Eos # (Auto) (0.0-0.7) K/uL Baso # (Auto) (0.0-0.1) K/uL Nucleated RBC % /100WBC Nucleated RBCs # K/uL Sodium 140 (136-145) mmol/L Potassium 3.8 (3.5-5.1) mmol/L Chloride 104 (98-107) mmol/L Carbon Dioxide 26.4 (21.0-32.0) mmol/L BUN 11 (7.0-18.0) mg/dL Creatinine 0.8 (0.6-1.0) mg/dL Est Cr Clr Drug Dosing 54.71 mL/min Estimated GFR (MDRD) > 60.0 ml/min Glucose 105 (74-106) mg/dL POC Glucose (70-99) mg/dL Calcium 8.8 (8.5-10.1) mg/dL Phosphorus 3.3 (2.6-4.7) mg/dL Magnesium 2.4 (1.8-2.4) mg/dL Total Bilirubin 0.2 (0.2-1.0) mg/dL AST 17 (15-37) IU/L ALT 27 (14-63) IU/L Alkaline Phosphatase 104 (46-116) U/L Troponin I < 0.050 < 0.050 (0.000-0.056) ng/mL Total Protein 8.1 (6.4-8.2) g/dL Albumin 3.6 (3.4-5.0) g/dL Globulin 4.5 H (2.6-4.0) g/dL Albumin/Globulin Ratio 0.8 L (0.9-1.6) Lipase 63 L (73-393) U/L Urine Color YELLOW Urine Appearance SLT CLOUDY Urine pH 5.5 (5.0-8.0) Ur Specific [place] 1.010 (1.001-1.035) Urine Protein NEGATIVE (NEGATIVE) mg/dL Urine Glucose (UA) NEGATIVE (NEGATIVE) mg/dL Urine Ketones NEGATIVE (NEGATIVE) mg/dL Urine Occult Blood SMALL H (NEGATIVE) Urine Nitrite NEGATIVE (NEGATIVE) Urine Bilirubin NEGATIVE (NEGATIVE) Urine Urobilinogen 0.2 (<2.0) EU/dL Ur Leukocyte Esterase NEGATIVE (NEGATIVE) Urine RBC 0-2 (0-2/HPF) Urine WBC 1-4 (0-5/HPF) Ur Epithelial Cells FEW (NONE-FEW) Urine Bacteria 1+ H (NEGATIVE) SARS-CoV-2 RNA (LATISHA) (NEGATIVE) 04/05/21 Range/Units 10:01 WBC (4.0-11.0) K/uL RBC (4.30-5.90) M/uL Hgb (12.0-16.0) g/dL Hct (36.0-46.0) % MCV (80.0-98.0) fL MCH (27.0-32.0) pg MCHC (31.0-37.0) g/dL RDW Std Deviation (28.0-62.0) fl RDW Coeff of [place]aritza (11.0-15.0) % Plt Count (150-400) K/uL MPV (7.40-12.00) fL Neut % (Auto) (48.0-80.0) % Lymph % (Auto) (16.0-40.0) % [place] % (Auto) (0.0-15.0) % Eos % (Auto) (0.0-7.0) % Baso % (Auto) (0.0-1.5) % Neut # (Auto) (1.4-5.7) K/uL Lymph # (Auto) (0.6-2.4) K/uL [place] # (Auto) (0.0-0.8) K/uL Eos # (Auto) (0.0-0.7) K/uL Baso # (Auto) (0.0-0.1) K/uL Nucleated RBC % /100WBC Nucleated RBCs # K/uL Sodium (136-145) mmol/L Potassium (3.5-5.1) mmol/L Chloride (98-107) mmol/L Carbon Dioxide (21.0-32.0) mmol/L BUN (7.0-18.0) mg/dL Creatinine (0.6-1.0) mg/dL Est Cr Clr Drug Dosing mL/min Estimated GFR (MDRD) ml/min Glucose (74-106) mg/dL POC Glucose (70-99) mg/dL Calcium (8.5-10.1) mg/dL Phosphorus (2.6-4.7) mg/dL Magnesium (1.8-2.4) mg/dL Total Bilirubin (0.2-1.0) mg/dL AST (15-37) IU/L ALT (14-63) IU/L Alkaline Phosphatase (46-116) U/L Troponin I < 0.050 (0.000-0.056) ng/mL Total Protein (6.4-8.2) g/dL Albumin (3.4-5.0) g/dL Globulin (2.6-4.0) g/dL Albumin/Globulin Ratio (0.9-1.6) Lipase (73-393) U/L Urine Color Urine Appearance Urine pH (5.0-8.0) Ur Specific [place] (1.001-1.035) Urine Protein (NEGATIVE) mg/dL Urine Glucose (UA) (NEGATIVE) mg/dL Urine Ketones (NEGATIVE) mg/dL Urine Occult Blood (NEGATIVE) Urine Nitrite (NEGATIVE) Urine Bilirubin (NEGATIVE) Urine Urobilinogen (<2.0) EU/dL Ur Leukocyte Esterase (NEGATIVE) Urine RBC (0-2/HPF) Urine WBC (0-5/HPF) Ur Epithelial Cells (NONE-FEW) Urine Bacteria (NEGATIVE) SARS-CoV-2 RNA (LATISHA) (NEGATIVE) Result Diagrams: 04/04/21 23:55 04/04/21 23:55 Sepsis Event Note - Evaluation Sepsis Screening Result: No Definite Risk - Focused Exam Vital Signs: Vital Signs Temp Pulse Resp BP BP Pulse Ox 04/05/21 14:29 76 151/76 H 04/05/21 14:25 151/76 H 04/05/21 11:55 36.2 C 77 18 154/78 H 96 04/05/21 11:05 173/77 H 04/05/21 08:45 36.2 C 74 20 173/77 H 95 04/05/21 07:14 129/52 L 04/05/21 03:50 178/92 H 04/05/21 03:30 36.3 C 89 20 178/92 H 96 Problem List Initiated/Reviewed/Updated: Yes Orders Last 24hrs: Active Orders 24 hr Category Date Time Status Patient Status [ADT] Routine ADT 04/05/21 02:13 Active Cardiac Monitoring [RC] . DIRECTED Care 04/04/21 23:45 Active Pulse Oximetry [RC] ASDIRECTED Care 04/04/21 23:45 Active Ready for Discharge [RC] PER UNIT ROUTINE Care 04/05/21 14:42 Ordered Telemetry Monitoring [Cardiac Monitoring] [RC] Q8H Care 04/05/21 02:27 Active Regular Diet [DIET] Diet 04/05/21 Breakfast Active B-TYPE NATRIURETIC PEPTIDE,BNP [CHEM] Stat Lab 04/04/21 23:55 Received Sodium Chloride 0.9% [Saline Flush] Med 04/04/21 23:45 Active 10 ml FLUSH ASDIRECTED PRN Sodium Chloride 0.9% [Saline Flush] Med 04/04/21 23:45 Active 2.5 ml FLUSH ASDIRECTED PRN lisinopriL [Prinivil] Med 04/05/21 11:00 Active 20 mg PO DAILY Saline Lock Insert [OM.PC] Routine Oth 04/04/21 23:45 Ordered Medication Orders Lisinopril (Lisinopril 10 Mg Tab) 20 mg PO DAILY [facility] Last Admin: 04/05/21 11:05 Dose: 20 mg Documented by: JOSÉ MIGUEL Sodium Chloride (Sodium Chloride 0.9% 10 Ml Syringe) 10 ml FLUSH ASDIRECTED PRN PRN Reason: Keep Vein Open Last Admin: 04/04/21 23:52 Dose: 10 ml Documented by: CECILE Sodium Chloride (Sodium Chloride 0.9% 2.5 Ml Syringe) 2.5 ml FLUSH ASDIRECTED PRN PRN Reason: Keep Vein Open Last Admin: 04/04/21 23:52 Dose: 2.5 ml Documented by: CECILE Assessment/Plan Comment:: 65 yo female admitted for hypertensive urgency. CT head and MRI brain did not show anything acute. She was treated with IV labetalol, and additional lisinopril, and amlodpine. Her blood pressure has improved and her symptoms have resolved. She rule out for acute coronary syndrome with serial negative cardiac enzymes and EKGs. She was monitored overnight with no events on telemetry. She is to be discharged home with prescription of amlodipine 10mg daily to take with the lisinopril. She is to follow up with Melvi Weber and Dr. Anderson.
== END 2021-04-05 15:30 | disposition home or self-care (01) ==
LOC: MW.ED 23:17 → MW.MS 04-05 02:13
PROVIDERS: ADMIT Internal Medicine; ATTEND Internal Medicine
DX: I16.0 Hypertensive urgency (principal); I10 Essential (primary) hypertension; R07.9 Chest pain, unspecified; R07.81 Pleurodynia; F17.210 Nicotine dependence, cigarettes, uncomplicated; E66.9 Obesity, unspecified; Z20.822 Contact with and (suspected) exposure to COVID-19; Z88.5 Allergy status to narcotic agent; Z88.8 Allergy status to other drugs, medicaments and biological substances; Z79.899 Other long term (current) drug therapy; Z88.2 Allergy status to sulfonamides; Z68.36 Body mass index [BMI] 36.0-36.9, adult
CPT/HCPCS: 36415; 70450; 70553; 71046; 80053; 81001; 82947; 83690; 83735; 83880; 84100; 84484; 85025; 93005; A9270; A9577; G0378; J1200; J2765; J3490; J7120; U0002

== ENCOUNTER 2021-04-26 00:27 | Emergency (ER) | payer MEDICARE, OTHER ==
[2021-04-26] MEDS ORDERED: Sodium Chloride 0.9% 2.5 ML Syringe FLUSH PRN (01:04)
[2021-04-26] MEDS ORDERED: Sodium Chloride 0.9% 10 ML Syringe FLUSH PRN (01:04)
[2021-04-26 01:39] LABS: BLOOD UREA NITROGEN,BUN 13 mg/dL (7.0-18.0); CARBON DIOXIDE,CO2 26.3 mmol/L (21.0-32.0); CHLORIDE,CL 103 mmol/L (98-107); GLUCOSE RANDOM 156 mg/dL (74-106); SODIUM,NA 139 mmol/L (136-145)
--- NOTE | 2021-04-26 01:45 | CR ---
Indication: Chest pain Technique: Chest 1 view Comparison: Chest x-ray 04/05/2021 Findings/Impression: Cardiovascular and mediastinum: Normal heart size with atherosclerotic calcification. Lungs and pleural space: Lungs are clear. No sign of infiltrate or mass. No sign of pleural effusion. No pneumothorax. Bones and soft tissues: No acute findings. Dictated by Marques Ferraro MD @ 04/26/2021 1:43:04 AM (Electronically Signed)
[2021-04-26] MEDS ORDERED: Bisacodyl 5 MG Tab PO ONE (02:03)
--- NOTE | 2021-04-26 02:06 | EDM.PDOC ---
ED HPI GENERAL MEDICAL PROBLEM - General Chief Complaint: Cardiovascular Problem Stated Complaint: HIGH BLOOD PRESSURE; TIGHTNESS IN CHEST Time Seen by Provider: 04/26/21 01:11 - History of Present Illness INITIAL COMMENTS - FREE TEXT/NARRATIVE: HISTORY AND PHYSICAL: History of present illness: This is a 65-year-old female who presents ER today secondary to elevated blood pressure at home. Patient has had a recent diagnosis of hypertension and has been started on lisinopril and amlodipine. Patient reports that this evening her blood pressure was 170 systolic so she took her evening dose of amlodipine and waited and her blood pressure did not come down so she came to the ER for further evaluation. Patient reports that she was admitted to the hospital several weeks ago secondary to elevated blood pressure and chest discomfort. Patient reports that she was in the hospital and discharged after 1 to 2 days. Patient reports that she has an appointment with a tin plater in [facility] on Monday. Patient reports no shortness of breath, nausea, vomiting, diarrhea, pain rating down her arms or back. Patient reports that she had slight discomfort in her chest but this is something that she reports that she has freq uently and was not new for her. Patient reports that pain is not exertional and lasted for several seconds and went away. Review of systems: As per history of present illness and below otherwise all systems reviewed and negative. Past medical history: As per history of present illness and as reviewed below otherwise noncontributory. Surgical history: As per history of present illness and as reviewed below otherwise noncontributory. Social history: No reported history of drug abuse. Family history: As per history of present illness and as reviewed below otherwise noncontributory. Physical exam: This patient was seen and evaluated during the 2019 SARS-CoV-2 novel coronavirus pandemic period. Community viral transmission is ongoing at time of this encounter and the emergency department is operating under pandemic response procedures. Constitutional: Patient is oriented to person, place, and time. Appears well- developed and well-nourished. No distress. HEENT: Moist mucous membranes Head: Normocephalic and atraumatic Eyes: Right eye exhibits no discharge. Left eye exhibits no discharge. No scleral icterus Neck: Normal range of motion. No tracheal deviation present. Cardiovascular: Normal rate and regular rhythm. Pulmonary: Effort normal, no respiratory distress. Abdominal: No distention Musculoskeletal: Normal range of motion Neurologic: Alert and oriented to person, place and time. Skin: [place], warm and dry. Psychiatric: Normal mood and affect. Behavior is normal. Judgment and thought content normal. Nursing note and vital signs have been reviewed Diagnostics: 04/26/2021 12:31 AM EKG: As interpreted by ER physician: Maxi: Nonspecific ST-T wave abnormalities Normal axis No evidence of ST elevation [place] Normal sinus rhythm heart rate of 100 Chest Xray: Normal cardiac silhouette No infiltrates or effusions identified. No PTX No evidence of acute bony fracture. As interpreted by ER MD: [employer]: [] Assessment and plan: 65-year-old female who presents ER today secondary to elevated blood pressure. Patient blood pressure upon arrival to the ED had been significantly improved and patient is very satisfied with her current blood pressure. Patient's labs, EKG, chest x-ray drawn that were normal. Patient troponin was negative. Patient will be discharged home in stable condition and instructed to follow-up with her appointment on Monday with her tin plater. Reassessment at the time of disposition demonstrates that the patient is in no acute distress. The patient has remained stable throughout the entire ED visit and is without objective evidence for acute process requiring urgent intervention or hospitalization. The patient is stable for discharge, counseling is provided as documented above, discussed symptomatic treatment and specific conditions for return. I have spoken with the patient/caregiver and discussed todays findings, in addition to providing specific details for the plan of care. Questions are a nswered and there is agreement with the plan. Definitive disposition and diagnosis as appropriate pending reevaluation and review of above. Left chest Pain Score (Numeric/FACES): 6 - Related Data Allergies Allergy/AdvReac Type Severity Reaction Status Date / Time codeine Allergy Stomach Verified 04/26/21 00:42 Upset pregabalin [From Lyrica] Allergy Swelling Verified 04/26/21 00:42 Sulfa (Sulfonamide Allergy Confusion Verified 04/26/21 00:42 Antibiotics) Home Meds: Home Meds Amitriptyline [Elavil] 10 mg PO TID 04/04/21 [History] lisinopriL [Lisinopril] 20 mg PO DAILY 04/04/21 [History] amLODIPine Besylate [Amlodipine Besylate] 10 mg PO DAILY #30 tablet 04/05/21 [Rx ] atorvaSTATin [Lipitor] 20 mg PO BEDTIME 04/26/21 [History] Past Medical History HEENT History: Reports: None Cardiovascular History: Reports: None, High Cholesterol, Hypertension Respiratory History: Reports: Bronchitis, Recurrent Other Respiratory History: hx tracheobronchitis, smokes 1/2 to 1 PPD x 40 years, Gastrointestinal History: Reports: GERD Genitourinary History: Reports: None 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: Musculoskeletal History: Reports: None Neurological History: Reports: None Psychiatric History: Reports: None Endocrine/Metabolic History: Reports: Obesity/BMI 30+ Hematologic History: Reports: None Immunologic History: Reports: None Oncologic (Cancer) History: Reports: None Dermatologic History: Reports: None - Infectious Disease History Infectious Disease History: Reports: None - Past Surgical History Head Surgeries/Procedures: Reports: None HEENT Surgical History: Reports: Tonsillectomy Cardiovascular Surgical History: Reports: None Respiratory Surgical History: Reports: None GI Surgical History: Reports: Cholecystectomy Female Surgical History: Reports: TURBT Endocrine Surgical History: Reports: None Neurological Surgical History: Reports: None Musculoskeletal Surgical History: Reports: Other (See Below) Other Musculoskeletal Surgeries/Procedures:: excision of lipoma from rt rib cage area Oncologic Surgical History: Reports: None Social & Family History - Family History Family Medical History: No Pertinent Family History - Tobacco Use Tobacco Use Status *Q: Former Tobacco User Used Tobacco, but Quit: Yes Month/Year Tobacco Last Used: March 2021 - Caffeine Use Caffeine Use: Reports: Coffee - Recreational Drug Use Recreational Drug Use: No ED ROS GENERAL - Review of Systems Review Of Systems: See Below ED EXAM, GENERAL - Physical Exam Exam: See Below Course - Vital Signs Last Recorded V/S: Last Vital Signs Temp 98.2 F 04/26/21 00:36 Pulse 102 H 04/26/21 00:36 Resp 18 04/26/21 00:36 BP 155/75 H 04/26/21 00:36 Pulse Ox 98 04/26/21 00:36 - Orders/Labs/Meds Orders: Active Orders 24 hr Category Date Time Status Sodium Chloride 0.9% [Saline Flush] Med 04/26/21 01:04 Active 10 ml FLUSH ASDIRECTED PRN Sodium Chloride 0.9% [Saline Flush] Med 04/26/21 01:04 Active 2.5 ml FLUSH ASDIRECTED PRN bisacodyL [Dulcolax] Med 04/26/21 02:03 Once 10 mg PO ONETIME ONE Saline Lock Insert [OM.PC] Stat Oth 04/26/21 01:04 Ordered Medication Orders Sodium Chloride (Sodium Chloride 0.9% 10 Ml Syringe) 10 ml FLUSH ASDIRECTED PRN PRN Reason: Keep Vein Open Sodium Chloride (Sodium Chloride 0.9% 2.5 Ml Syringe) 2.5 ml FLUSH ASDIRECTED PRN PRN Reason: Keep Vein Open Labs: Laboratory Tests 04/26/21 04/26/21 04/26/21 Range/Units 01:08 01:08 01:08 WBC 8.69 (4.0-11.0) K/uL RBC 4.54 (4.30-5.90) M/uL Hgb 13.4 (12.0-16.0) g/dL Hct 40.1 (36.0-46.0) % MCV 88.3 (80.0-98.0) fL MCH 29.5 (27.0-32.0) pg MCHC 33.4 (31.0-37.0) g/dL RDW Std Deviation 47.8 (28.0-62.0) fl RDW Coeff of Yaritza 15 (11.0-15.0) % Plt Count 268 (150-400) K/uL MPV 9.60 (7.40-12.00) fL Neut % (Auto) 59.1 (48.0-80.0) % Lymph % (Auto) 30.1 (16.0-40.0) % [place] % (Auto) 5.9 (0.0-15.0) % Eos % (Auto) 4.4 (0.0-7.0) % Baso % (Auto) 0.5 (0.0-1.5) % Neut # (Auto) 5.1 (1.4-5.7) K/uL Lymph # (Auto) 2.6 H (0.6-2.4) K/uL [place] # (Auto) 0.5 (0.0-0.8) K/uL Eos # (Auto) 0.4 (0.0-0.7) K/uL Baso # (Auto) 0.0 (0.0-0.1) K/uL Nucleated RBC % 0.0 /100WBC Nucleated RBCs # 0 K/uL Sodium 139 (136-145) mmol/L Potassium 4.0 (3.5-5.1) mmol/L Chloride 103 (98-107) mmol/L Carbon Dioxide 26.3 (21.0-32.0) mmol/L BUN 13 (7.0-18.0) mg/dL Creatinine 0.8 (0.6-1.0) mg/dL Est Cr Clr Drug Dosing 54.71 mL/min Estimated GFR (MDRD) > 60.0 ml/min Glucose 156 H (74-106) mg/dL Calcium 9.1 (8.5-10.1) mg/dL Total Bilirubin 0.3 (0.2-1.0) mg/dL AST 17 (15-37) IU/L ALT 27 (14-63) IU/L Alkaline Phosphatase 100 (46-116) U/L Troponin I < 0.050 (0.000-0.056) ng/mL Total Protein 7.6 (6.4-8.2) g/dL Albumin 3.5 (3.4-5.0) g/dL Globulin 4.1 H (2.6-4.0) g/dL Albumin/Globulin Ratio 0.9 (0.9-1.6) TSH, Ultra Sensitive 3.78 H (0.36-3.74) uIU/mL Meds: Medications Generic Name Dose Route Start Last Admin Trade Name Freq PRN Reason Stop Dose Admin Sodium Chloride 10 ml 04/26/21 01:04 Sodium Chloride 0.9% 10 Ml Syringe FLUSH ASDIRECTED PRN Keep Vein Open Sodium Chloride 2.5 ml 04/26/21 01:04 Sodium Chloride 0.9% 2.5 Ml Syringe FLUSH ASDIRECTED PRN Keep Vein Open Departure - Departure Time of Disposition: 02:05 Disposition: Home, Self-Care 01 Condition: Good Clinical Impression: Nonspecific chest pain, Hypertension Instructions: Nonspecific Chest Pain, Adult, Hypertension, Adult, [id number] Referrals: Mary Peters DO [Primary Care Provider] - Additional Instructions: You were seen and evaluated in ER today secondary to an elevated blood pressure. Your blood pressure upon arrival to the ER had significantly improved after taking the amlodipine. Your blood tests including her troponin, CBC, electrolytes were all within normal limits. Your thyroid tests were normal. Your chest x-ray and EKG were unremarkable. Please keep your appointment on Monday with your tin plater. Please return to the ER if you develop any new or concerning symptoms. The following information is given to patients seen in the emergency department who are being discharged to home. This information is to outline your options for follow-up care. We provide all patients seen in our emergency department with a follow-up referral. The need for follow-up, as well as the timing and circumstances, are variable depending upon the specifics of your emergency department visit. If you don't have a primary care physician on staff, we will provide you with a referral. We always advise you to contact your personal physician following an emergency department visit to inform them of the circumstance of the visit and for follow-up with them and/or the need for any referrals to a consulting specialist. The emergency department will also refer you to a specialist when appropriate. This referral assures that you have the opportunity for follow-up care with a specialist. All of these measure are taken in an effort to provide you with optimal care, which includes your follow-up. Under all circumstances we always encourage you to contact your private physician who remains a resource for coordinating your care. When calling for follow-up care, please make the office aware that this follow-up is from your recent emergency room visit. If for any reason you are refused follow-up, please contact the [facility] Emergency Department at and asked to speak to the emergency department charge nurse. [facility] [address] [place] [id number] [address] [address] Sepsis Event Note (ED) - Evaluation Sepsis Screening Result: No Definite Risk - Focused Exam Vital Signs: Vital Signs Temp Pulse Resp BP Pulse Ox 04/26/21 00:36 98.2 F 102 H 18 155/75 H 98 - My Orders Last 24 Hours: My Active Orders 04/26/21 01:04 Sodium Chloride 0.9% [Saline Flush] 10 ml FLUSH ASDIRECTED PRN Sodium Chloride 0.9% [Saline Flush] 2.5 ml FLUSH ASDIRECTED PRN Saline Lock Insert [OM.PC] Stat 04/26/21 02:03 bisacodyL [Dulcolax] 10 mg PO ONETIME ONE - Assessment/Plan Last 24 Hours: My Active Orders 04/26/21 01:04 Sodium Chloride 0.9% [Saline Flush] 10 ml FLUSH ASDIRECTED PRN Sodium Chloride 0.9% [Saline Flush] 2.5 ml FLUSH ASDIRECTED PRN Saline Lock Insert [OM.PC] Stat 04/26/21 02:03 bisacodyL [Dulcolax] 10 mg PO ONETIME ONE
== END 2021-04-26 02:19 | disposition home or self-care (01) ==
LOC: MW.ED 00:27
DX: R07.89 Other chest pain (principal); I10 Essential (primary) hypertension; E78.00 Pure hypercholesterolemia, unspecified; K21.9 Gastro-esophageal reflux disease without esophagitis; E66.9 Obesity, unspecified; Z68.32 Body mass index [BMI] 32.0-32.9, adult; Z88.5 Allergy status to narcotic agent; Z88.2 Allergy status to sulfonamides; Z88.8 Allergy status to other drugs, medicaments and biological substances; Z79.899 Other long term (current) drug therapy; Z87.891 Personal history of nicotine dependence
CPT/HCPCS: 36415; 71045; 80053; 84443; 84484; 85025; 93005; 99285; A9270

== ENCOUNTER 2021-09-05 06:26 | Emergency (ER) | payer MEDICARE, OTHER | END 2021-09-05 08:33 | disposition home or self-care (01) | LOC: MW.ED 06:26 | DX: R51.9 Headache, unspecified (principal); I10 Essential (primary) hypertension; E11.9 Type 2 diabetes mellitus without complications; E78.00 Pure hypercholesterolemia, unspecified; K21.9 Gastro-esophageal reflux disease without esophagitis; E66.9 Obesity, unspecified; Z68.36 Body mass index [BMI] 36.0-36.9, adult; Z88.5 Allergy status to narcotic agent; Z88.8 Allergy status to other drugs, medicaments and biological substances; Z88.2 Allergy status to sulfonamides; Z79.899 Other long term (current) drug therapy | CPT/HCPCS: 70450; 70450-26; 93005; 93010; 99283; 99284-25 ==

== ENCOUNTER 2022-04-18 14:02 | Emergency (ER) | payer MEDICARE, OTHER ==
[2022-04-18 18:10] LABS: CORONAVIRUS COVID-19 NAA NEGATIVE (NEGATIVE); INFLUENZA A NAA NEGATIVE (NEGATIVE); INFLUENZA B NAA NEGATIVE (NEGATIVE); RESPIRATORY SYNCYTIAL VIR NAA NEGATIVE (NEGATIVE)
== END 2022-04-18 17:32 | disposition home or self-care (01) ==
LOC: MW.ED 14:02
DX: R51.9 Headache, unspecified (principal); E78.00 Pure hypercholesterolemia, unspecified; I10 Essential (primary) hypertension; E66.9 Obesity, unspecified; Z68.38 Body mass index [BMI] 38.0-38.9, adult; Z88.5 Allergy status to narcotic agent; Z88.2 Allergy status to sulfonamides; Z88.8 Allergy status to other drugs, medicaments and biological substances; Z79.899 Other long term (current) drug therapy; Z20.822 Contact with and (suspected) exposure to COVID-19
CPT/HCPCS: 0241U; 99283

== ENCOUNTER 2022-05-21 19:05 | Emergency (ER) | payer MEDICARE, OTHER ==
[2022-05-21 20:19] LABS: CARBON DIOXIDE,CO2 28.4 mmol/L (21.0-32.0); POTASSIUM,K 3.6 mmol/L (3.5-5.1)
[2022-05-21 21:02] LABS: CORONAVIRUS COVID-19 NAA NEGATIVE (NEGATIVE); INFLUENZA A NAA NEGATIVE (NEGATIVE); INFLUENZA B NAA NEGATIVE (NEGATIVE)
[2022-05-21] MEDS ORDERED: Acetaminophen 500 MG Tab PO ONE (21:33)
== END 2022-05-21 23:40 | disposition home or self-care (01) ==
LOC: MW.ED 19:05
DX: R07.89 Other chest pain (principal); I10 Essential (primary) hypertension; E78.5 Hyperlipidemia, unspecified; K21.9 Gastro-esophageal reflux disease without esophagitis; E78.00 Pure hypercholesterolemia, unspecified; F17.210 Nicotine dependence, cigarettes, uncomplicated; E66.9 Obesity, unspecified; Z68.32 Body mass index [BMI] 32.0-32.9, adult; Z79.899 Other long term (current) drug therapy; Z88.5 Allergy status to narcotic agent; Z88.2 Allergy status to sulfonamides; Z20.822 Contact with and (suspected) exposure to COVID-19
CPT/HCPCS: 0240U; 36415; 71045; 80053; 83605; 83735; 84484; 85025; 85379; 85610; 93005; 99284; A9270

== ENCOUNTER 2022-10-02 13:26 | Emergency (ER) | payer MEDICARE, OTHER ==
[2022-10-02] MEDS ORDERED: Albuterol/Ipratropium 3.0-0.5 MG/3 ML Neb Soln NEB ONE ×2 (15:27→16:36)
[2022-10-02] MEDS ORDERED: Albuterol 8 GM Inhaler INH ONE (16:34)
[2022-10-02] MEDS ORDERED: Azithromycin 250 MG Tab PO STA (16:35)
[2022-10-02] MEDS ORDERED: predniSONE 20 MG Tab PO STA (16:35)
== END 2022-10-02 17:21 | disposition home or self-care (01) ==
LOC: MW.ED 13:26
DX: J45.40 Moderate persistent asthma, uncomplicated (principal); E78.00 Pure hypercholesterolemia, unspecified; I10 Essential (primary) hypertension; E66.9 Obesity, unspecified; Z68.32 Body mass index [BMI] 32.0-32.9, adult; Z88.5 Allergy status to narcotic agent; Z88.2 Allergy status to sulfonamides; Z88.8 Allergy status to other drugs, medicaments and biological substances
CPT/HCPCS: 71045; 99283; A9270; J7620-GY

== ENCOUNTER 2023-01-05 20:06 | Emergency (ER) | payer MEDICARE, OTHER ==
[2023-01-06] MEDS ORDERED: Sodium Chloride 0.9% 2.5 ML Syringe FLUSH PRN (01:23)
[2023-01-06] MEDS ORDERED: Sodium Chloride 0.9% 10 ML Syringe FLUSH PRN (01:23)
[2023-01-06] MEDS ORDERED: Sodium Chloride 0.9% 500 ML IV SCH (01:30)
[2023-01-06] MEDS ORDERED: Sodium Chloride 0.9% 500 ML IV ONE (01:45)
[2023-01-06 02:11] LABS: BASOPHILS PERCENT AUTO 0.4 % (0.0-1.5); EOSINOPHILS ABSOLUTE AUTO 0.1 K/uL (0.0-0.7); EOSINOPHILS PERCENT AUTO 1.4 % (0.0-7.0); HEMATOCRIT 38.4 % (36.0-46.0); HEMOGLOBIN 12.3 g/dL (12.0-16.0); LYMPHOCYTES ABSOLUTE AUTO 2.8 K/uL (0.6-2.4); LYMPHOCYTES PERCENT AUTO 28.7 % (16.0-40.0); MEAN CORPUSCULAR HEMOGLOBIN 27.5 pg (27.0-32.0); MEAN CORPUSCULAR VOLUME 85.9 fL (80.0-98.0); MONOCYTES ABSOLUTE AUTO 0.7 K/uL (0.0-0.8); MONOCYTES PERCENT AUTO 6.9 % (0.0-15.0); NEUTROPHILS PERCENT AUTO 62.6 % (48.0-80.0); NRBC ABSOLUTE 0 K/uL; PLATELET COUNT,PLT 308 K/uL (150-400); RED BLOOD CELL COUNT 4.47 M/uL (4.30-5.90); WHITE BLOOD CELL COUNT,WBC 9.67 K/uL (4.0-11.0)
[2023-01-06 02:23] LABS: INR 0.93 (0.86-1.11)
[2023-01-06 02:33] LABS: APPEARANCE,URINE CLEAR; BILIRUBIN,URINE NEGATIVE (NEGATIVE); COLOR,URINE YELLOW; GLUCOSE,URINE NEGATIVE (NEGATIVE); KETONES,URINE NEGATIVE (NEGATIVE); LEUKOCYTE ESTERASE,URINE NEGATIVE (NEGATIVE); NITRITE,URINE NEGATIVE (NEGATIVE); OCCULT BLOOD,URINE TRACE-INTACT (NEGATIVE); PROTEIN,URINE NEGATIVE (NEGATIVE); UROBILINOGEN,URINE 0.2 EU/dL (<2.0)
[2023-01-06 02:41] LABS: BACTERIA,URINE FEW (NEGATIVE); EPITHELIAL CELLS,URINE FEW (NONE-FEW); RBC,URINE 0-1 (0-2/HPF); WBC,URINE 0-2 (0-5/HPF)
[2023-01-06 02:50] LABS: A/G RATIO 0.9 (0.9-1.6); ALBUMIN 3.7 g/dL (3.4-5.0); BILIRUBIN TOTAL 0.4 mg/dL (0.2-1.0); CALCIUM 9.3 mg/dL (8.5-10.1); CARBON DIOXIDE,CO2 25.8 mmol/L (21.0-32.0); CREATININE 0.9 mg/dL (0.6-1.0); EST CRCL DRUG DOSING (CG) 47.32 mL/min; POTASSIUM,K 4.1 mmol/L (3.5-5.1)
== END 2023-01-06 04:09 | disposition home or self-care (01) ==
LOC: MW.ED 20:06
DX: R42 Dizziness and giddiness (principal); R51.9 Headache, unspecified; I10 Essential (primary) hypertension; E78.00 Pure hypercholesterolemia, unspecified; E66.9 Obesity, unspecified; Z68.33 Body mass index [BMI] 33.0-33.9, adult; Z88.5 Allergy status to narcotic agent; Z88.8 Allergy status to other drugs, medicaments and biological substances; Z88.2 Allergy status to sulfonamides; Z79.899 Other long term (current) drug therapy
CPT/HCPCS: 36415; 71045; 80053; 81001; 83690; 84484; 85025; 85610; 93005; 96360; 99284; J3490; J7040; 93010; 99283

== ENCOUNTER 2024-02-29 07:07 | Day surgery (SDC) | payer MEDICARE, OTHER ==
[~2024-02-29 07:07] MED LIST changes: -Lactated Ringers 1,000 ML IV SCH; -Sodium Chloride 0.9% 10 ML SDV IV PRN; +Sodium Chloride 0.9% 20 ML SDV IV PRN
[2024-02-29] MEDS ORDERED: dexmedeTOMIDine HCl 200 MCG/2 ML SDV IV ONE (07:08)
[2024-02-29] MEDS: Lactated Ringers 1,000 ML IV SCH (07:44)
[2024-02-29] MEDS ORDERED: propofoL 50 ML ONE (09:49)
[2024-02-29] MEDS ORDERED: Ondansetron 4 MG/2 ML SDV ONE (10:26)
== END 2024-02-29 12:00 | disposition home or self-care (01) ==
LOC: MW.SDS 07:07
PROVIDERS: ATTEND Surgery
DX: K57.30 Diverticulosis of large intestine without perforation or abscess without bleeding (principal); K21.9 Gastro-esophageal reflux disease without esophagitis; K44.9 Diaphragmatic hernia without obstruction or gangrene; J44.9 Chronic obstructive pulmonary disease, unspecified; I10 Essential (primary) hypertension; E78.00 Pure hypercholesterolemia, unspecified; Z87.891 Personal history of nicotine dependence; Z79.899 Other long term (current) drug therapy; Z88.2 Allergy status to sulfonamides; Z88.5 Allergy status to narcotic agent
CPT/HCPCS: 43239; 45330; J2405; J2704; J7120; 00813; 88305; J3490

== ENCOUNTER 2024-03-07 09:43 | Day surgery (SDC) | payer MEDICARE, OTHER ==
[~2024-03-07 09:43] MED LIST changes: +Albuterol 0.083% 2.5 MG/3 ML Neb Soln NEB PRN; +HYDROmorphone 1 MG/ML Syringe IVPUSH PRN; +Metoclopramide 10 MG/2 ML SDV IVPUSH PRN; +Morphine 2 MG/ML SYRINGE IVPUSH PRN; +Naloxone 0.4 MG/ML SDV IVPUSH PRN; +Ondansetron 4 MG/2 ML SDV IVPUSH PRN; +Phenylephrine HCl In 0.9% NaCl 1 MG/10 ML Syringe IVPUSH PRN; -Sodium Chloride 0.9% 10 ML Syringe FLUSH PRN; -Sodium Chloride 0.9% 2.5 ML Syringe FLUSH PRN; -Sodium Chloride 0.9% 20 ML SDV IV PRN; +fentaNYL 50 MCG/ML SDV IVPUSH PRN
[2024-03-07] MEDS ORDERED: Lidocaine 1% 20 ML MDV ONE (10:19)
[2024-03-07] MEDS ORDERED: Bupivacaine 0.5% 10 ML SDV ONE (10:19)
[2024-03-07] MEDS ORDERED: fentaNYL 100 MCG/2 ML SDV ONE (10:53)
[2024-03-07] MEDS ORDERED: Propofol 200 MG/20 ML SDV ONE (10:54)
[2024-03-07] MEDS: Lactated Ringers 1,000 ML IV SCH (11:32)
[2024-03-07] MEDS ORDERED: Rocuronium Bromide 50 MG/5 ML Syringe ONE (11:34)
[2024-03-07] MEDS ORDERED: dexmedeTOMIDine HCl 200 MCG/2 ML SDV ONE (11:34)
[2024-03-07] MEDS ORDERED: ceFAZolin 2 GM Vial ONE (12:17)
[2024-03-07] MEDS ORDERED: Ondansetron 4 MG/2 ML SDV ONE (12:24)
[2024-03-07] MEDS ORDERED: Dexamethasone 4 MG/ML 5 ML MDV ONE (12:24)
[2024-03-07] MEDS ORDERED: Ketorolac 30 MG/ML SDV ONE (13:00)
[2024-03-07] MEDS ORDERED: Sugammadex Sodium 200 MG/2 ML VIAL IV ONE (13:00)
== END 2024-03-07 14:25 | disposition home or self-care (01) ==
LOC: MW.SDS 09:43
PROVIDERS: ATTEND Surgery
DX: D17.22 Benign lipomatous neoplasm of skin and subcutaneous tissue of left arm (principal); D17.0 Benign lipomatous neoplasm of skin and subcutaneous tissue of head, face and neck; L82.1 Other seborrheic keratosis; J44.9 Chronic obstructive pulmonary disease, unspecified; I10 Essential (primary) hypertension; E66.9 Obesity, unspecified; E78.00 Pure hypercholesterolemia, unspecified; F17.200 Nicotine dependence, unspecified, uncomplicated; Z88.2 Allergy status to sulfonamides; Z88.5 Allergy status to narcotic agent; Z88.8 Allergy status to other drugs, medicaments and biological substances; Z79.899 Other long term (current) drug therapy; Z79.84 Long term (current) use of oral hypoglycemic drugs; Z68.38 Body mass index [BMI] 38.0-38.9, adult
CPT/HCPCS: 11401; 21552; 25071; J0131; J0665; J0690; J1100; J1885; J2405; J2704; J3010; J3490; J7120; 88302

== ENCOUNTER 2024-10-04 01:36 | Emergency (ER) | payer MEDICARE, OTHER ==
[2024-10-04] MEDS ORDERED: Sodium Chloride 0.9% 2.5 ML Syringe FLUSH PRN (01:47)
[2024-10-04] MEDS ORDERED: Sodium Chloride 0.9% 10 ML Syringe FLUSH PRN (01:47)
[2024-10-04 02:00] LABS: BASOPHILS ABSOLUTE AUTO 0.06 K/uL (0.00-0.20); BASOPHILS PERCENT AUTO 0.6 % (0.0-1.0); HEMATOCRIT 37.9 % (37.0-47.0); HEMOGLOBIN 12.5 g/dL (12.0-16.0); IMMATURE GRAN ABSOLUTE AUTO 0.02 K/uL (0.00-0.05); IMMATURE GRAN PERCENT AUTO 0.2 % (0.0-0.4); LYMPHOCYTES ABSOLUTE AUTO 3.85 K/uL (1.00-4.80); LYMPHOCYTES PERCENT AUTO 38.1 % (24.0-44.0); MEAN CORPUSCULAR VOLUME 84.8 fL (83.0-99.0); MONOCYTES ABSOLUTE AUTO 0.66 K/uL (0.00-0.80); MONOCYTES PERCENT AUTO 6.5 % (0.0-8.0); NEUTROPHILS ABSOLUTE AUTO 5.01 K/uL (1.80-7.70); NEUTROPHILS PERCENT AUTO 49.6 % (41.0-71.0); PLATELET COUNT,PLT 287 K/uL (150-400); RED BLOOD CELL COUNT 4.47 M/uL (4.10-5.30)
[2024-10-04 02:37] LABS: CORONAVIRUS COVID-19 NAA NEGATIVE (NEGATIVE); INFLUENZA A NAA NEGATIVE (NEGATIVE); INFLUENZA B NAA NEGATIVE (NEGATIVE)
[2024-10-04 02:48] LABS: BLOOD UREA NITROGEN,BUN 25 mg/dL (7.0-18.0); CALCIUM 8.8 mg/dL (8.5-10.1); CARBON DIOXIDE,CO2 21.4 mmol/L (21.0-32.0); CHLORIDE,CL 100 mmol/L (98-107); GLUCOSE RANDOM 79 mg/dL (74-106); PRO B-TYPE NATRIUR PEPT,BNPPRO 15 pg/mL (0-125); SODIUM,NA 135 mmol/L (136-145)
[2024-10-04 02:51] LABS: ESTIMATED GFR 61 mL/min (>60)
[2024-10-04] MEDS: Iopamidol 755 MG/ML 500 ML Multipack Bottle IVPUSH ONE (03:01)
== END 2024-10-04 05:27 | disposition home or self-care (01) ==
LOC: MW.ED 01:36
DX: J40 Bronchitis, not specified as acute or chronic (principal); E78.00 Pure hypercholesterolemia, unspecified; I10 Essential (primary) hypertension; K21.9 Gastro-esophageal reflux disease without esophagitis; Z88.5 Allergy status to narcotic agent; Z88.2 Allergy status to sulfonamides; Z88.8 Allergy status to other drugs, medicaments and biological substances; Z79.899 Other long term (current) drug therapy; Z79.51 Long term (current) use of inhaled steroids; Z79.84 Long term (current) use of oral hypoglycemic drugs; Z90.49 Acquired absence of other specified parts of digestive tract
CPT/HCPCS: 0240U; 36415; 71275; 80048; 83880; 84484; 85025; 85379; 93005; 99285; Q9967; 93010; 99283